=== PATIENT | male | born 1970 | race Caucasian/White ===

== ENCOUNTER 2020-11-30 07:45 | Emergency (ER) | payer MEDICAID ==
[~2020-11-30] VITALS: Ht 185.4 cm; Wt 79.5 kg
[2020-11-30] MEDS ORDERED: LORazepam 1 MG TABLET PO ONE ×2 (08:45→10:30)
[2020-11-30] MEDS ORDERED: RisperiDONE 1 MG TABLET PO ONE (08:45)
[2020-11-30 11:15] VITALS: BP 174/98
== END 2020-11-30 11:27 | disposition home or self-care (01) ==
LOC: EMS 07:45
DX: F41.9 Anxiety disorder, unspecified (principal)
CPT/HCPCS: 99284; Z7502; Z7610